=== PATIENT | female | born 1970 | race Two or more races ===

== ENCOUNTER 2017-10-04 10:26 | Outpatient (CLI) | payer OTHER | END 2017-10-04 10:52 | disposition home or self-care (01) | LOC: SONOGRAMA 10:26 | DX: N60.11 Diffuse cystic mastopathy of right breast (principal); N60.12 Diffuse cystic mastopathy of left breast ==

== ENCOUNTER 2017-11-01 06:44 | Day surgery (SDC) | payer OTHER | END 2017-11-01 18:55 | disposition home or self-care (01) | LOC: CIR.AMB 06:44 | DX: D24.2 Benign neoplasm of left breast (principal) ==